=== PATIENT | male | born 1970 | race Caucasian/White ===

== ENCOUNTER 2025-10-01 06:28 | Day surgery (SDC) | payer BC, SELFPAY | END 2025-10-01 12:14 | disposition home or self-care (01) | LOC: GI 06:28 | PROVIDERS: ATTENDING PHYSICIAN Internal Medicine | DX: Z12.11 Encounter for screening for malignant neoplasm of colon (principal); K57.30 Diverticulosis of large intestine without perforation or abscess without bleeding; R13.10 Dysphagia, unspecified; R12 Heartburn; K44.9 Diaphragmatic hernia without obstruction or gangrene; K31.89 Other diseases of stomach and duodenum; K22.89 Other specified disease of esophagus; D12.2 Benign neoplasm of ascending colon; K29.50 Unspecified chronic gastritis without bleeding | CPT/HCPCS: 45385; 43239; 88305; 88342 ==